=== PATIENT | female | born 1995 | race American Indian/Alaskan Native ===

== ENCOUNTER 2018-01-19 01:14 | Emergency (ER) | payer SELFPAY ==
[2018-01-19 01:21] VITALS: BP 131/78
[2018-01-19 02:12] LABS: Bacteria,Urine 2+ /HPF (Negative); Bilirubin,Urine NEG (Negative); Blood,Urine LG (Negative); Color,Urine Red (Yellow); Mucus,Urine 1+ /HPF
[2018-01-19 02:15] LABS: Protein,Urine >500 mg/dL (Negative); RBC,Urine > 182.0 /HPF (0.0-6.0); WBC,Urine > 182.0 /HPF (0.0-6.0)
[2018-01-19 02:27] LABS: Basophils % (Auto) 0.4 % (0.0-1.8); Eosinophils # (Auto) 0.2 K/mm3 (0.0-0.4); Eosinophils % (Auto) 2.7 % (0.0-4.3); Hematocrit 34.9 % (30.3-42.9); Hemoglobin 11.6 gm/dl (10.1-14.3); Lymphocytes % (Auto) 48.5 % (13.4-35.0); Mean Corpuscular HGB Conc 33 % (30-34); Mean Corpuscular Hemoglobin 29 pg (28-32); Mean Corpuscular Volume 87 fl (79-97); Monocytes # (Auto) 0.7 K/mm3 (0.0-0.8); Monocytes % (Auto) 11.5 % (0.0-7.3); Platelet Count 426 K/mm3 (140-440); Red Blood Count 4.01 M/mm3 (3.65-5.03); Red Cell Distribution Width 17.1 % (13.2-15.2)
[2018-01-19 02:43] LABS: Alanine Aminotransferase 33 units/L (7-56); Albumin 4.2 g/dL (3.9-5); BUN/Creatinine Ratio 16; Blood Urea Nitrogen 11 mg/dL (7-17); Calcium 8.9 mg/dL (8.4-10.2); Hemolysis Index 0
--- NOTE | 2018-01-19 04:22 | Emergency Department Report ---
ED Female HPI - General Chief complaint: Abdominal Pain Stated complaint: ABD PAIN Time Seen by Provider: 01/19/18 04:17 Source: patient Mode of arrival: Ambulatory Limitations: No Limitations - History of Present Illness Initial comments: Patient is a 22-year-old female presents emergency room with complaints of dysuria and frequency 2 days. Patient states at this time she does not have any abdominal pain. Patient denies fever or chills. Patient denies nausea and vomiting. Patient states the pain is only when she is urinating. Patient is also having frequency in urination or she is urinating a small amount. MD Complaint: dysuria -: Sudden Improves with: none Worsens with: urination Are you Now?: No Associated Symptoms: dysuria. denies: vaginal discharge, vaginal bleeding, abdominal pain, nausea/vomiting, fever/chills, headaches, loss of appetite, hematuria, rash, seizure, shortness of breath, syncope, weakness - Related Data Sexually active: Yes Previous Rx's Medication Instructions Recorded Last Taken Type Ciprofloxacin HCl [Cipro] 500 mg PO BID 10 Days #20 tablet 01/19/18 Unknown Rx Potassium Chloride [K-Dur] 10 meq PO ONCE 15 Days #15 tablet 01/19/18 Unknown Rx Allergies Allergy/AdvReac Type Severity Reaction Status Date / Time No Known Allergies Allergy Unverified 01/19/18 01:21 ED Review of Systems ROS: Stated complaint: ABD PAIN Other details as noted in HPI Constitutional: denies: chills, fever Eyes: denies: eye pain, eye discharge, vision change ENT: denies: ear pain, throat pain Respiratory: denies: cough, shortness of breath, wheezing Cardiovascular: denies: chest pain, palpitations Endocrine: no symptoms reported Gastrointestinal: denies: abdominal pain, nausea, diarrhea Genitourinary: urgency, dysuria, frequency. denies: discharge Musculoskeletal: denies: back pain, joint swelling, arthralgia Skin: denies: rash, lesions Neurological: denies: headache, weakness, paresthesias Psychiatric: denies: anxiety, depression Hematological/Lymphatic: denies: easy bleeding, easy bruising ED Past Medical Hx - Past Medical History Previous Medical History?: No - Surgical History Past Surgical History?: No - Family History Family history: no significant - Social History Smoking Status: Current Every Day Smoker Substance Use Type: Alcohol, Marijuana - Medications Home Medications: Home Medications Medication Instructions Recorded Confirmed Last Taken Type Ciprofloxacin HCl [Cipro] 500 mg PO BID 10 Days #20 tablet 01/19/18 Unknown Rx Potassium Chloride [K-Dur] 10 meq PO ONCE 15 Days #15 tablet 01/19/18 Unknown Rx ED Physical Exam - General Limitations: No Limitations General appearance: alert, in no apparent distress - Head Head exam: Present: atraumatic, normocephalic - Eye Eye exam: Present: normal appearance - ENT ENT exam: Present: mucous membranes moist - Neck Neck exam: Present: normal inspection - Respiratory Respiratory exam: Present: normal lung sounds bilaterally. Absent: respiratory distress - Cardiovascular Cardiovascular Exam: Present: regular rate, normal rhythm. Absent: systolic murmur, diastolic murmur, rubs, gallop - GI/Abdominal GI/Abdominal exam: Present: soft, normal bowel sounds. Absent: distended, tenderness, guarding, rebound - Extremities Exam Extremities exam: Present: normal inspection - Back Exam Back exam: Present: normal inspection - Neurological Exam Neurological exam: Present: alert, oriented X3 - Psychiatric Psychiatric exam: Present: normal affect, normal mood - Skin Skin exam: Present: warm, dry, intact, normal color. Absent: rash ED Course Vital Signs 01/19/18 01:20 Temperature 99.2 F Pulse Rate 82 Respiratory 18 Rate Blood Pressure 131/78 O2 Sat by Pulse 96 Oximetry - Reevaluation(s) Reevaluation #1: Discussed all results with patient. Patient refused to allow the nurse to put an IV in. Patient made aware of low potassium. Discussed risks with patient. Patient voiced understanding of risks. Patient still refused to have IV placed. Reevaluation #2: We'll discharge patient home after giving her an IM injection and oral potassium. Patient advised she will need to follow up with her primary care in 2-4 days to have her potassium rechecked. Patient given return to ER instructions. Patient given discharge instructions. Patient voiced understanding of instructions. Patient advised to take medications as directed. Patient advised to increase water. AMA signed for IV refusal 01/19/18 04:21 ED Medical Decision Making - Lab Data Result diagrams: 01/19/18 01:29 01/19/18 01:29 - Medical Decision Making Patient is a 22-year-old female presents emergency room with dysuria and frequency. Patient found to have a UTI and hypokalemia. Patient was given 20 mEq of potassium orally and a IM shot of Rocephin. Rest of labs unremarkable. Patient take medications as directed. Patient to increase water. Patient to follow discharge instructions. Patient given return to ER instructions. - Differential Diagnosis uti. dysuria. frequency. Dehydration Critical care attestation.: If time is entered above; I have spent that time in minutes in the direct care of this critically ill patient, excluding procedure time. ED Disposition Clinical Impression: Hypokalemia Urinary tract infection Qualifiers: Urinary tract infection type: site unspecified Hematuria presence: with hematuria Qualified Code(s): N39.0 - Urinary tract infection, site not specified Disposition: - TO HOME OR SELFCARE Is pt being admited?: No Does the pt Need Aspirin: No Condition: Stable Instructions: Urinary Tract Infection in Women (ED), Hypokalemia (ED), Abdominal Pain (ED) Additional Instructions: Patient to follow up with primary care in 2-4 days. Patient to return to ER if condition worsens. Patient to increase water. Patient to take meds as directed. Patient to rest. Prescriptions: Ciprofloxacin HCl [Cipro] 500 mg PO BID 10 Days #20 tablet Potassium Chloride [K-Dur] 10 meq PO ONCE 15 Days #15 tablet Referrals: PRIMARY CARE [Primary Care Provider] - 3-5 Days Forms: AMA Form Time of Disposition: 04:28
[2018-01-19] MEDS ORDERED: ROCEPHIN IM ONE (04:23)
[2018-01-19] MEDS ORDERED: K-DUR PO ONE (04:23)
[2018-01-19] MEDS ORDERED: XYLOCAINE 1% MPF 5 mL INFILTRATI ONE (04:23)
== END 2018-01-19 05:17 | disposition home or self-care (01) ==
LOC: ED 01:14
DX: N39.0 Urinary tract infection, site not specified (principal); E87.6 Hypokalemia; F17.200 Nicotine dependence, unspecified, uncomplicated; F12.10 Cannabis abuse, uncomplicated
CPT/HCPCS: 36415; 80053; 81001; 84703; 85025; 96372; 99283; J0696